=== PATIENT | female | born 1965 | race American Indian/Alaskan Native ===

== ENCOUNTER 2016-09-27 08:12 | Day surgery (SDC) | payer MEDICAID ==
[2016-09-21 10:40] VITALS: BMI 29.0
[2016-09-21 15:02] VITALS: RESP 18
[2016-09-27 09:10] LABS: PARTIAL THROMBOPLASTIN TIME 26.8 SECONDS (23.3-32.5)
[2016-09-27] MEDS ORDERED: Dexamethasone 4 mg/1 ml ONE (11:21)
[2016-09-27] MEDS ORDERED: Midazolam 2 MG/2 ML VIAL ONE (11:21)
[2016-09-27] MEDS ORDERED: Propofol 10 mg/ml Inj (20 ML) ONE (11:21)
[2016-09-27] MEDS ORDERED: Lactated Ringer's 1,000 ML IV ONE ×2 (11:30→12:45)
[2016-09-27] MEDS ORDERED: ePHEDrine 50 mg/ml Inj ONE (12:22)
[2016-09-27] MEDS ORDERED: HYDROmorphone 0.5 mg/0.5 ml ISec IVP PRN (12:54)
[2016-09-27 14:35] VITALS: O2SAT 100
[2016-09-27 15:25] VITALS: BP 110/76; PULSE 96; TEMP 98.8
--- NOTE | 2016-09-27 16:12 | CP.SDSHP ---
Same Day Surgery H & P - History Proposed Procedure: Hysteroscopic Myomectomy with Myosure device Pre-Op Diagnosis: Submucous fibroid nodule with excessive uterine bleeding. - Allergies Allergies: Allergies No Known Allergies Allergy (Verified 09/21/16 10:40) - Current Medications Current Medications: Antiretroviral medications - Physical Exam Vital Signs: Vital Signs 09/27/16 09/27/16 09/27/16 09:17 09:25 09:31 Temperature 98.6 F 98.6 F Pulse Rate 86 86 86 Respiratory 18 18 Rate Blood Pressure 130/81 130/81 O2 Sat by Pulse 100 100 Oximetry 09/27/16 09/27/16 09/27/16 12:50 13:05 13:20 Temperature 97.8 F Pulse Rate 97 H 88 80 Respiratory 18 18 18 Rate Blood Pressure 139/93 H 144/104 H 139/97 H O2 Sat by Pulse 100 100 100 Oximetry 09/27/16 09/27/16 09/27/16 13:35 13:50 14:05 Temperature 98.4 F Pulse Rate 89 87 90 Respiratory 18 18 18 Rate Blood Pressure 134/90 125/83 111/82 O2 Sat by Pulse 98 100 97 Oximetry 09/27/16 09/27/16 09/27/16 14:30 14:35 15:24 Temperature 97.9 F 98.8 F Pulse Rate 94 H 96 H Respiratory 18 18 Rate Blood Pressure 111/82 110/76 O2 Sat by Pulse 100 100 100 Oximetry Mental Status: Alert & Oriented x3 Neuro: WNL Heart: WNL Lungs: WNL GI: WNL - {Optional Preform as Required} Abdomen: WNL MEAT CARVER: WNL : WNL Other Pertinent Findings: H/O HIV - Impression Impression: 51yo female with Submucous Fibroid Nodule with menorrhagia Pt. Evaluated Today:Candidate for Anesthesia & Procedure: Yes - Date & Time Date: 09/27/16 Time: 07:40 Short Stay Discharge - Short Stay Discharge Admitting Diagnosis/Reason for Visit: N93.9 Disposition: HOME/ ROUTINE Referrals: Toya Tse MD [Primary Care Provider] - Additional Instructions (Diet, Activity): Take Motrin 600mg for pain Q6hrs as needed Progress Note/Discharge Note with Instructions: Pt s/p hysteroscopic myomectomy, Clinically stable. Pt will be discharged home to f/u in the office in 2 weeks. All other complaints should be sent to the nearest ER or to the clinic. Pt given prescription for Motrin for pain control.
--- NOTE | 2016-09-27 16:21 | PCM.SURG1 ---
Surgeon's Initial Post Op Note - Surgeon's Notes Surgeon: Dr Dalton Naval Designer: Dr Tiffany Kaba ( Family Practice Resident ) Type of Anesthesia: General Endo Anesthesia Administered By: Dr Sanchez Pre-Operative Diagnosis: Submucous Fibroid nodule with Menorrhagia. Operative Findings: 6-8wk sized anteverted uterus. A 3.6 X 2.7 X 2.1cm sbmucous fibroid nodule situated on the left anteroleteral aspect of the endometrial cavity and inferior to the left ostium. Norrmal appearing endometrial tissue. Both ostia were seen and appeared normal. EBL-20mls Post-Operative Diagnosis: Same as preop diagnosis Operation Performed: Hysteroscopic myomectomy using the Myosure procedure. Specimen/Specimens Removed: Fragments of Fibroid nodule removed. Estimated Blood Loss: EBL {In ML}: 20 Post-Op Condition: Good Date of Surgery/Procedure: 09/27/16 Time of Surgery/Procedure: 16:30
--- NOTE | 2016-09-27 17:35 | OP ---
PROCEDURE DATE: 09/27/2016 PREOPERATIVE DIAGNOSIS: A 51-year-old female with menorrhagia and submucosal fibroid nodule. POSTOPERATIVE DIAGNOSIS: A 51-year-old female with menorrhagia and submucosal fibroid nodule. PROCEDURE DONE: Hysteroscopic myomectomy using the MyoSure procedure. SURGEON: Dr. Dalton. SMOKING PIPE COATER: Dr. Tiffany Kaba (family practice resident). TYPE OF ANESTHESIA: General endotracheal. ANESTHESIOLOGIST: Anesthesia administered by Dr. Sanchez. FINDINGS: A 6-8 week size anteverted uterus. A 3.6 x 2.7 x 2.1 submucosal fibroid nodule situated on the left anterolateral aspect of the endometrial cavity was identified. This was inferior to the left ostium of the left fallopian tube. The tissue and endometrial tissue appeared normal. IV FLUID INTAKE: About 600 mL. URINE OUTPUT: About 50 mL. ESTIMATED BLOOD LOSS: About 20 mL. COMPLICATIONS: None. SPECIMEN: Fragments from the fibroid nodule removed were sent for histopathology. DESCRIPTION OF PROCEDURE: After obtaining informed consent, the patient was sent to the OR with IV running. The patient was placed in a supine position on the OR table and after adequate general anesthesia, was placed in dorsal lithotomy position. The patient was then prepped and draped in a sterile fashion. The urinary bladder was drained with a straight catheter with about 50 mL of clear urine output. The posterior wall of the vagina was depressed using a weighted speculum. The anterior wall was elevated using an L-shaped retractor. The anterior lip of the cervix was held with a single-tooth tenaculum. The uterus was then sounded to a depth of 8 cm. The cervical canal was then dilated using Hegar's dilated to about 8 mm dilatation. The hysteroscopic instrument was introduced into the uterine cavity at this point with the findings noted above. After the distending the uterine cavity with the required amount of pressure and normal saline, the MyoSure device was introduced into the hysteroscopic channels. By applying the device onto the surface of the submucosal nodule, different cycles of activation of the MyoSure device were done in the presence of device customer loyalty representative. These were done until all the tissues comprising the submucosal fibroid nodule had been completely removed. These were kept and sent for histopathological evaluation. Pictures were taken both before and after the operation. Once the procedure had been completed, all instruments were taken from the endometrial cavity and the vagina. The patient was then placed back in a supine position and was sent to the recovery room awake and in stable condition. All counts of instruments used were correct x 3. Sheldon Dalton MD cc: [id number] TT: 09/27/2016 17:34:49 tn MTDD
== END 2016-09-27 16:22 | disposition home or self-care (01) ==
LOC: H.OPSURG 08:12
PROVIDERS: ATTEND Obstetrics & Gynecology
DX: D25.0 Submucous leiomyoma of uterus (principal); N93.9 Abnormal uterine and vaginal bleeding, unspecified; I10 Essential (primary) hypertension; D64.9 Anemia, unspecified; Z21 Asymptomatic human immunodeficiency virus [HIV] infection status

== ENCOUNTER 2017-09-14 06:52 | Day surgery (SDC) | payer MEDICAID ==
[2017-09-14 07:07] VITALS: BMI 31.6
[2017-09-14 07:50] LABS: HEMOGLOBIN 11.8 g/dL (12.0-16.0); MEAN CORPUSCULAR HEMOGLOBIN 29.2 pg (27.0-31.0); MEAN CORPUSCULAR HGB CONC 32.8 g/dL (33.0-37.0); RBC 4.04 Mil/uL (3.80-5.20); WHITE BLOOD COUNT 5.8 K/uL (4.8-10.8)
[2017-09-14 07:57] LABS: BLOOD UREA NITROGEN 22 mg/dl (7-17); CALCIUM 9.6 mg/dL (8.4-10.2); GFR AFRICAN-AMERICAN > 60; GFR NON-AFRICAN AMERICAN > 60
[2017-09-14 08:13] LABS: INR 0.9 (0.9-1.2); PARTIAL THROMBOPLASTIN TIME 31.6 Seconds (25.6-37.1); PROTHROMBIN TIME 10.4 Seconds (9.8-13.1)
[2017-09-14] MEDS ORDERED: NITROGLYCERIN IV ONE (08:15)
[2017-09-14] MEDS ORDERED: PED IV ONE (08:15)
[2017-09-14] MEDS ORDERED: VERAPAMIL IV ONE (08:15)
[2017-09-14] MEDS ORDERED: HEPARIN IV ONE (08:15)
[2017-09-14] MEDS ORDERED: Propofol 10 mg/ml Inj (20 ML) ONE ×2 (08:29→11:39)
[2017-09-14] MEDS ORDERED: Nitroglycerin 2% 15 INCH/30 GM TUBE TOP STA (08:32)
[2017-09-14] MEDS ORDERED: Lidocaine/Prilocaine CREAM 5GM TP ONE ×2 (08:32→08:38)
[2017-09-14] MEDS ORDERED: Nitroglycerin 2% Ointment Foilpak UD TOP ONE (08:39)
[2017-09-14] MEDS ORDERED: ceFAZolin IV 2 gm in Dextrose 2 GM/50 ML BAG IVPB ONE (08:39)
[2017-09-14 08:44] VITALS: RESP 18
[2017-09-14] MEDS ORDERED: Phenylephrine 10 mg/ml Inj ONE (08:54)
[2017-09-14] MEDS ORDERED: Iodixanol 320 MG/ML 100 ML BOTTLE IV ONE ×2 (10:25→13:14)
--- NOTE | 2017-09-14 10:30 | CARD ---
APPROVED REPORT EKG Measurement Heart [id number] <Conclusion> Normal sinus rhythm Voltage criteria for left ventricular hypertrophy Abnormal ECG
[2017-09-14] MEDS ORDERED: Midazolam 2 MG/2 ML VIAL ONE (11:39)
[2017-09-14] MEDS ORDERED: Lidocaine Hydrochloride 1% 10 ML ONE (11:52)
[2017-09-14] MEDS ORDERED: Iodixanol 320 mg/ml 50 ml Sol IV ONE (12:34)
[2017-09-14] MEDS ORDERED: Sodium Chloride 0.9% 1,000 ML IV SCH (14:00)
[2017-09-14] MEDS ORDERED: Morphine 4 MG/ML VIAL ONE (14:01)
--- NOTE | 2017-09-14 14:19 | CP.SDSHP ---
Same Day Surgery H & P - History Proposed Procedure: Uterine Fibroid Embolization Pre-Op Diagnosis: symptomatic uterine fibroids - Allergies Allergies: Allergies No Known Allergies Allergy (Verified 07/05/17 12:14) - Physical Exam Vital Signs: Vital Signs 09/14/17 09/14/17 09/14/17 07:33 07:37 08:43 Temperature 98.4 F 99.8 F H Pulse Rate 88 88 83 Respiratory 20 18 Rate Blood Pressure 131/89 141/95 H O2 Sat by Pulse 100 99 Oximetry 09/14/17 11:50 Temperature 99.1 F Pulse Rate 79 Respiratory 18 Rate Blood Pressure 141/89 O2 Sat by Pulse 100 Oximetry - Impression Impression: 52 yo female w/ dysmenorrhea, menometrorrhagia, bulk related symptoms secondary to uterine fibroids and large submucosal polyp - Date & Time Date: 09/14/17 Time: 08:30 Short Stay Discharge - Short Stay Discharge Admitting Diagnosis/Reason for Visit: D50.8, D25.9, N92.1 Disposition: HOME/ ROUTINE Referrals: Toya Tse MD [Primary Care Provider] -
--- NOTE | 2017-09-14 14:21 | PCM.SURG1 ---
Surgeon's Initial Post Op Note - Surgeon's Notes Surgeon: Kevin Lopez MD Washerette Machine Operator: None Type of Anesthesia: MAC Pre-Operative Diagnosis: symptomatic uterine fibroids Operative Findings: bilateral hypertrophied uterine arteries supplying fibroid uterus Post-Operative Diagnosis: same Operation Performed: bilateral uterine artery embolization Specimen/Specimens Removed: n/a Estimated Blood Loss: EBL {In ML}: 5 Date of Surgery/Procedure: 09/14/17 Time of Surgery/Procedure: 13:30
[2017-09-14] MEDS ORDERED: Sodium Chloride 0.9% 500 ML IV ONE (15:00)
[2017-09-14] MEDS ORDERED: Acetaminophen IV IVPB ONE (16:00)
[2017-09-14 16:27] VITALS: TEMP 98
[2017-09-14 18:49] VITALS: BP 118/80; PULSE 85; O2SAT 18
--- NOTE | 2017-09-18 10:12 | VASCULAR ---
PROCEDURE: UTERINE FIBROID EMBOLIZATION CLINICAL HISTORY: 52-year-old female with history of symptomatic uterine fibroids causing dysmenorrhea, menometrorrhagia in bulk related symptoms referred to Interventional Radiology for bilateral uterine fibroid embolization. COMPARISON: MRI of the pelvis performed 07/20/2017. PROCEDURE: 1. Selective bilateral internal iliac artery angiography. 2. Selective bilateral uterine artery angiography. 3. Bilateral uterine artery embolization. PRE-PROCEDURE FINDINGS: 1. Right internal iliac artery angiography demonstrated wide patency with the origin of the left uterine artery seen arising from the anterior division. 2. Right uterine artery angiography demonstrated opacification of an enlarged, fibroid uterus without opacification of branches to the right ovary. 3. Left internal iliac artery angiography demonstrated wide patency with the origin of the left uterine artery seen arising from the anterior division. 4. Left uterine artery angiography demonstrated opacification of an enlarged, fibroid uterus without opacification of branches to the left ovary. POST-PROCEDURE FINDINGS: 1. Post-embolization left uterine artery angiography demonstrated significant pruning of distal vessels and some reflux at the catheter tip. 2. Post-embolization right uterine artery angiography demonstrated significant pruning of distal vessels and some reflux at the catheter tip. INTERVENTIONAL RADIOLOGIST: Kevin Lopez M.D. (the attending was present for the entire procedure) ANESTHESIA: Provided by the attending anesthesiologist. Sedation was supervised by the anesthesiology attending with the presence of independent radiology nursing monitoring. Physiological data monitoring was performed throughout the entire procedure. The patient's blood pressure, EKG and pulse oximetry were recorded. The patient tolerated the procedure and sedation without untoward reactions. The intra-procedural sedation time was 75 minutes. MEDICATION: Lidocaine 1% for local subcutaneous analgesia. Ancef 2 gram IV. Decadron 10 milligram IV. Protonix 40 milligram IV. Zofran 4 milligram IV. Verapamil 2.5 milligram intra-arterial. Nitroglycerin 200 microgram intra-arterial. Heparin 3000 units intra-arterial. COMPLICATIONS: None. RADIATION DOSE: Fluoroscopy Time: 996.8 seconds DAP: 936.93 mGy PROCEDURE DESCRIPTION AND FINDINGS: The risks, benefits, alternatives and possible complications of the procedure including, but not limited to, puncture site or internal bleeding, uterine necrosis or abscess formation requiring emergent hysterectomy, nontarget embolization, tissue sloughing, amenorrhea, early onset menopause, pulmonary embolism as well as anesthesia complications, were fully discussed; all questions were answered and informed consent was obtained. The patient was brought into the interventional suite and a pre-procedure 'time-out' was performed. The patient was placed on the fluoroscopy table in the supine position. A modified Abdullahi test (Barbeau test) was performed on the left wrist to confirm patency of the ulnopalmar arch using pulse oximetry. A Barbeau C waveform was demonstrated. The left wrist was then prepped and draped in the usual sterile fashion. Maximum sterile barrier precautions were maintained throughout the entire procedure. Preliminary ultrasound images of the left wrist vasculature demonstrate patency of the left radial artery. Following subcutaneous infiltration of lidocaine 1% for local analgesia, under ultrasound guidance, a 21-gauge needle was advanced into the left radial artery with real-time visualization of needle entry. The ultrasound images were permanently recorded and submitted to the PACS. A 0.018 guidewire was advanced centrally. A 5-Russian hydrophilic Glideslender sheath was advanced over the guidewire. The inner portion of the sheath was carefully removed with the guidewire. Verapamil 2.5 mg, Nitroglycerin 200 mcg and Heparin 3000 units were given through the arterial sheath with slow hemodilution. A pressure side flush was started. A 4 Russian 125 Vert catheter was coaxially loaded via the 5 Russian sheath and was used to select the right internal iliac artery. Digital subtraction angiography was performed which demonstrated the wide patency with the origin of the right uterine artery seen arising from the anterior division of the right internal iliac artery. The right uterine artery was then selectively catheterized with a 2.8 Russian Oculeveumsigmacare ProGreat microcatheter and the catheter was advanced to the distal main right uterine artery, beyond the origin of the cervico-vaginal branch. Digital subtraction angiography was performed which demonstrated opacification of an enlarged, fibroid uterus without opacification of branches to the right ovary. Subsequently, the right uterine artery was embolized with 0.75 vials of 500-700 micron Embospheres until there was significant pruning of distal vessels and some reflux at the catheter tip with hand injection. 5 ml preservative free Lidocaine 2% was injected intra-arterially for analgesia. The microcatheter was removed and the 4 Russian 125 Vert catheter was pulled back and was used to select the left internal iliac artery. Digital subtraction angiography was performed which demonstrated the wide patency with the origin of the left uterine artery arising from the anterior division of the left internal iliac artery. The left uterine artery was then selectively catheterized with a 2.8 Russian Generate ProGreat microcatheter and the catheter was advanced to the distal main left uterine artery, beyond the origin of the cervico-vaginal branch. Digital subtraction angiography was performed which demonstrated opacification of an enlarged, fibroid uterus without opacification of branches to the left ovary. Subsequently, the left uterine artery was embolized with 2.5 vials 500-700 micron Embospheres until there was significant pruning of distal vessels and some reflux at the catheter tip with hand injection. 5 ml preservative free Lidocaine 2% was injected intra-arterially for analgesia. All catheters and guidewires were removed. A TR Band was placed on the left wrist for hemostasis. The access sheath was removed without evidence of hematoma. A radial artery pulse was palpated distal to the puncture site confirming patent hemostasis. The patient tolerated the procedure well without immediate post-procedure complications and was transferred to PACU in stable condition. IMPRESSION: SUCCESSFUL BILATERAL SELECTIVE UTERINE ARTERY CATHETERIZATION AND EMBOLIZATION FOR SYMPTOMATIC UTERINE FIBROIDS DESCRIBED ABOVE.
== END 2017-09-14 18:15 | disposition left against medical advice (07) ==
LOC: H.OPSURG 06:52
PROVIDERS: ATTEND Obstetrics & Gynecology
DX: N92.0 Excessive and frequent menstruation with regular cycle (principal); D50.8 Other iron deficiency anemias; D25.9 Leiomyoma of uterus, unspecified; N94.6 Dysmenorrhea, unspecified; D25.0 Submucous leiomyoma of uterus
CPT/HCPCS: 36415; 37243; 80048; 85027; 85610; 85730; 93005; C1769; J0131; J0690; J1100; J1644; J1885; J2001; J2250; J2270; J2370; J2704; J3010; J7040; Q9967

== ENCOUNTER 2017-09-22 16:17 | Inpatient (IN) | payer MEDICAID ==
[2017-09-22 16:18] VITALS: BMI 31.6
--- NOTE | 2017-09-22 17:41 | ED PDOC ---
HPI: Female Pain History Per: Patient History/Exam Limitations: no limitations Additional Complaint(s): 52 year old female with history of fibroids, s/p uterine artery embolization on 09/14/17 here at [facility]. She came in with complaints of feeling like she was passing tissue, 'like a piece of meat', from her vagina. She attempted to pull it out but was unable to, so she came to ED. She has had cramping as well, but has been taking pain medication prescribed to her post procedure with relief of pain. She has not had any fevers, chills, dysuria, chest pain, dyspnea, nausea, vomiting, diarrhea/constipation, pedal edema. Follow up appt with Dr. Tse on 09/27/17. LMP: unknown has been bleeding for months. PMD: Dr. Tse SCREWHEAD POLISHER: Dr. Wylie <Laura Mariano - Last Filed: 09/22/17 18:52> <Mayda Baker - Last Filed: 09/22/17 22:56> Time Seen by Provider: 09/22/17 16:48 Chief Complaint (Nursing): Female Genitourinary Supervising Attending Note - Supervising Attending Note The Documented history was done by the: Physician Screen Operator The documented physical exam was done by the: Physician Screen Operator, Attending Physician - Attestation: I have personally seen and examined this patient.: Yes I have fully participated in the care of the patient.: Yes I have reviewed all pertinent clinical information, including history, physical exam and plan: Yes <Mayda Baker - Last Filed: 09/22/17 22:56> Past Medical History Vital Signs: Last Vital Signs Temp 98.1 F 09/22/17 16:34 Pulse 82 09/22/17 16:34 Resp 18 09/22/17 16:34 BP 136/87 09/22/17 16:34 Pulse Ox 98 09/22/17 16:34 - Medical History PMH: Anemia, HIV, HTN Denies: Chronic Kidney Disease - Family History Family History: States: Unknown Family Hx <Laura Mariano - Last Filed: 09/22/17 18:52> Vital Signs: Last Vital Signs Temp 99.3 F 09/22/17 22:20 Pulse 88 09/22/17 22:20 Resp 20 09/22/17 22:20 BP 118/80 09/22/17 22:20 Pulse Ox 98 09/22/17 22:20 <Mayda Baker - Last Filed: 09/22/17 22:56> - Home Medications Home Medications: Ambulatory Orders Medication Instructions Recorded Ferrous Sulfate [Feosol] 325 mg PO TID 09/27/16 amLODIPine [Norvasc] 2.5 mg PO DAILY 09/27/16 Cholecalciferol [Vitamin D 1000 IU] 1,000 unit PO DAILY 08/08/17 Elviteg/Cob/Emtri/Tenof Alafen 1 tab PO HS 08/08/17 [Genvoya Tablet] Mv,Min10/Folic Acid/D3/Ala/Lut 1 tab PO DAILY 08/08/17 [Strovite One Caplet] Naproxen Sodium [Aleve] 440 mg PO DAILY PRN 09/22/17 Ondansetron [Zofran Tab] 4 mg PO Q6 PRN 09/22/17 - Allergies Allergies/Adverse Reactions: Allergies Allergy/AdvReac Type Severity Reaction Status Date / Time No Known Allergies Allergy Verified 07/05/17 12:14 Review of Systems Constitutional: Negative for: Fever, Chills, Sweats, Weakness, Malaise, Weight loss Eyes: Negative for: Pain ENT: Negative for: Ear Pain, Nose Pain Cardiovascular: Negative for: Chest Pain, Palpitations, Orthopnea, Paroxysmal Noc. Dyspnea, Light Headedness Respiratory: Negative for: Cough, Shortness of Breath, SOB with Exertion Gastrointestinal: Negative for: Nausea, Vomiting, Diarrhea, Constipation Genitourinary Female: Negative for: Dysuria Neurological: Negative for: Weakness, Numbness, Altered Mental Status, Headache Psych: Negative for: Anxiety, Depression <Laura Mariano - Last Filed: 09/22/17 18:52> Physical Exam - Reviewed Vital Signs Reviewed: Yes - Physical Exam Appears: Positive for: Well, Non-toxic, No Acute Distress Head Exam: Positive for: ATRAUMATIC, NORMAL INSPECTION, NORMOCEPHALIC Skin: Positive for: Normal Color, Warm, DRY Eye Exam: Positive for: EOMI, Normal appearance, PERRL ENT: Positive for: Normal ENT Inspection Neck: Positive for: Normal, Painless ROM Cardiovascular/Chest: Positive for: Regular Rate, Rhythm. Negative for: Chest Non Tender, Edema, Gallop, Murmur, Tachycardia Respiratory: Positive for: Normal Breath Sounds. Negative for: Rales, Rhonchi, Respiratory Distress Gastrointestinal/Abdominal: Positive for: Normal Exam, Bowel Sounds, Soft. Negative for: Tenderness Pelvic Exam: Positive for: Other (fibroid seen per vagina, appears necrotic, no active bleeding) Back: Negative for: L CVA Tenderness, R CVA Tenderness Rectal: Positive for: Deferred Extremity: Negative for: Tenderness, Pedal Edema Neurologic/Psych: Positive for: Alert, real estate valuer II-XII, Mood/Affect (appropriate) <Laura Mariano - Last Filed: 09/22/17 18:52> - Laboratory Results Result Diagrams: 09/22/17 18:15 09/22/17 18:15 - ECG O2 Sat by Pulse Oximetry: 98 - Progress ED Course And Treament: 52 year old female s/p uterine artery embolization with tissue per vagina. Patient was seen and examined with Dr. Orr, she is to go to OR for exam under anesthesia, and removal of fibroid. She is hemodynamically stable. --CBC --CMP --Type and Screen --Coags --CXR --ECG Case d/w Dr. Baker who agrees with the assessment and plan delineated above. <Laura Mariano - Last Filed: 09/22/17 18:52> - Laboratory Results Result Diagrams: 09/22/17 18:15 09/22/17 18:15 <Mayda Baker - Last Filed: 09/22/17 22:56> Disposition - Disposition Disposition Time: 18:53 - Pt Status Changed To: Hospital Disposition Of: SDS- Endo,OR,Cath,IR - POA Present On Arrival: None <Laura Mariano - Last Filed: 09/22/17 18:52> <Mayda Baker - Last Filed: 09/22/17 22:56> - Clinical Impression Clinical Impression: Status post embolization of uterine artery - Disposition Condition: STABLE
[2017-09-22] MEDS ORDERED: Etomidate 20 mg/10ml Inj IV ONE (18:19)
[2017-09-22] MEDS ORDERED: Succinylcholine 200 mg/10 ml Inj IV ONE (18:19)
[2017-09-22] MEDS ORDERED: Propofol 10 mg/ml Inj (20 ML) ONE ×2 (18:20→19:30)
--- NOTE | 2017-09-22 18:20 | CP.PCM.HP ---
History of Present Illness - History of Present Illness History of Present Illness: CC: "Tissue out of vagina" HPI: 52 YO Female with hx of fibroids, s/p uterine artery embolization on presents for ED for passing tissue per vagina. Pt states that she has had cramping pain for the past week and today she noticed some blood per vagina and when she went to the bathroom she saw tissue coming out of her vagina. PMH: HIV, fibroids, HTN, Anemia, HLD SurgH: uterine artery embolization on 09/14/17, hysteroscopic myomectomy with myosure FH: HTN in mother SH: Denies ETOH, Smoking and illicit drug use Meds: Genvoya, strovite, Amlodipine, Iron Allergies: NKDA Present on Admission - Present on Admission Any Indicators Present on Admission: No Review of Systems - Constitutional Constitutional: absent: Chills, Fever - Cardiovascular Cardiovascular: absent: Chest Pain, Dyspnea - Respiratory Respiratory: absent: Cough, Dyspnea - Gastrointestinal Gastrointestinal: absent: Constipation, Diarrhea, Vomiting - Genitourinary Genitourinary: absent: Difficulty Urinating, Hematuria - Reproductive: Female Additional comments: tissue per vagina Past Patient History - Past Medical History & Family History Past Medical History?: Yes - Past Social History Smoking Status: Never Smoked Alcohol: None Drugs: Denies - CARDIAC Hx Hypertension: Yes - PULMONARY Hx Respiratory Disorders: No - NEUROLOGICAL Hx Neurological Disorder: No - HEENT Hx HEENT Problems: No - RENAL Hx Chronic Kidney Disease: No - ENDOCRINE/METABOLIC Hx Endocrine Disorders: No - HEMATOLOGICAL/ONCOLOGICAL Hx Anemia: Yes Hx Human Immunodeficiency Virus (HIV): Yes - INTEGUMENTARY Hx Dermatological Problems: No - MUSCULOSKELETAL/RHEUMATOLOGICAL Hx Musculoskeletal Disorders: No - GASTROINTESTINAL Hx Gastrointestinal Disorders: No - GENITOURINARY/GYNECOLOGICAL Hx Genitourinary Disorders: No - PSYCHIATRIC Hx Psychophysiologic Disorder: No - SURGICAL HISTORY Hx Surgeries: Yes Other/Comment: removal fibroids,laparoscopy-09/2616 - ANESTHESIA Hx Anesthesia: Yes Hx Anesthesia Reactions: No Hx Malignant Hyperthermia: No Meds Allergies/Adverse Reactions: Allergies Allergy/AdvReac Type Severity Reaction Status Date / Time No Known Allergies Allergy Verified 07/05/17 12:14 Physical Exam - Constitutional Appears: No Acute Distress - Head Exam Head Exam: ATRAUMATIC, NORMOCEPHALIC - Eye Exam Eye Exam: EOMI, Normal appearance - ENT Exam ENT Exam: Mucous Membranes Moist - Respiratory Exam Respiratory Exam: Clear to Auscultation Bilateral, NORMAL BREATHING PATTERN. absent: Rales, Wheezes - Cardiovascular Exam Cardiovascular Exam: REGULAR RHYTHM, +S1, +S2 - GI/Abdominal Exam GI & Abdominal Exam: Hyperactive Bowel Sounds, Normal Bowel Sounds, Soft. absent: Distended, Tenderness - Exam Speculum exam: Tissue (tissue visualized in the vagina ) - Extremities Exam Extremities exam: Positive for: full ROM, normal inspection. Negative for: pedal edema - Psychiatric Exam Psychiatric exam: Normal Affect, Normal Mood - Skin Skin Exam: Dry, Intact, Normal Color Results - Vital Signs Recent Vital Signs: Last Vital Signs Temp 98.1 F 09/22/17 16:34 Pulse 82 09/22/17 16:34 Resp 18 09/22/17 16:34 BP 136/87 09/22/17 16:34 Pulse Ox 98 09/22/17 18:06 Assessment & Plan - Assessment and Plan (Free Text) Assessment: Assessment/Plan: 52 YO Female with hx of fibroids, and recent uterine artery embolization (09/14/2017) with fibroid visualized in vagina. -admit patient for OR procedure -Pt consented for procedure in OR for removal of fibroid -blood work, type and screen Pt seen by attending Dr. Orr
[2017-09-22 18:27] LABS: BASO # 0.1 K/uL (0.0-0.2); BASO % 0.8 % (0.0-2.0); EOS # 0.1 K/uL (0.0-0.7); EOS % 1.9 % (0.0-4.0); HEMOGLOBIN 11.1 g/dL (12.0-16.0); LYMPH # 2.3 K/uL (1.0-4.3); LYMPH % 29.5 % (20.0-40.0); MEAN CORPUSCULAR HEMOGLOBIN 28.9 pg (27.0-31.0); MEAN CORPUSCULAR HGB CONC 32.5 g/dL (33.0-37.0); MEAN PLATELET VOLUME 10.1 fl (7.2-11.7); MONO # 0.6 K/uL (0.0-0.8); MONO % 7.3 % (0.0-10.0); NEUT # 4.7 K/uL (1.8-7.0); NEUT % 60.5 % (50.0-75.0); NRBC % 0.1 % (0.0-0.0); RBC 3.83 Mil/uL (3.80-5.20); RED CELL DISTRIBUTION WIDTH 14.7 % (11.5-14.5); WHITE BLOOD COUNT 7.7 K/uL (4.8-10.8)
[2017-09-22 18:38] LABS: ALB/GLOB RATIO 1.1 (1.0-2.1); ALBUMIN 3.9 g/dL (3.5-5.0); ALT/SGPT 27 U/L (9-52); AST/SGOT 34 U/L (14-36); BLOOD UREA NITROGEN 13 mg/dl (7-17); CALCIUM 9.1 mg/dL (8.4-10.2); GFR AFRICAN-AMERICAN > 60; GFR NON-AFRICAN AMERICAN > 60
[2017-09-22 18:44] LABS: PARTIAL THROMBOPLASTIN TIME 25.8 Seconds (25.6-37.1)
[2017-09-22] MEDS ORDERED: Lidocaine 2% Inj (20ml) ONE (18:57)
[2017-09-22] MEDS ORDERED: Oxytocin 10 Units/ml Inj ONE (18:57)
[2017-09-22] MEDS ORDERED: Strong Iodine Topical Sol. 5%-10% ONE (18:57)
[2017-09-22] MEDS ORDERED: ACETIC ACID 3% 30 ML LIQUID MC ONE (18:58)
[2017-09-22] MEDS ORDERED: Ferric Subsulfate Sol(60 mL) ONE (18:58)
[2017-09-22] MEDS ORDERED: Bupivacaine 0.5% Inj(30mL) ONE (18:58)
[2017-09-22] MEDS ORDERED: Lactated Ringer's 1,000 ML IV ONE (19:28)
[2017-09-22] MEDS ORDERED: Midazolam 2 MG/2 ML VIAL ONE (19:30)
--- NOTE | 2017-09-22 19:56 | PCM.SURG1 ---
Surgeon's Initial Post Op Note - Surgeon's Notes Surgeon: Dominga Critical Power Technician: N/A Type of Anesthesia: General Endo Anesthesia Administered By: Ximena Pre-Operative Diagnosis: Aborting uterine fibroid Operative Findings: Aborting uterine fibroid ~4cm. Otherwise normal pelvic anatomy Post-Operative Diagnosis: Same Operation Performed: Exam under anesthesia, removal of aborting fibroid ( myomectomy) Specimen/Specimens Removed: uterine fibroid Estimated Blood Loss: EBL {In ML}: 0 Blood Products Given: N/A Drains Used: No Drains Post-Op Condition: Good Date of Surgery/Procedure: 09/22/17 Time of Surgery/Procedure: 19:56
[2017-09-22] MEDS ORDERED: Oxycodone/Acetaminophen 5/325 mg Tab PO PRN (19:58)
[2017-09-22] MEDS ORDERED: HYDROmorphone 0.5 mg/0.5 ml ISec IVP PRN (20:25)
[2017-09-22] MEDS ORDERED: Lactated Ringer's 1,000 ML IV SCH (20:30)
--- NOTE | 2017-09-22 23:55 | OP ---
PROCEDURE DATE: 09/22/2017 PREOPERATIVE DIAGNOSIS: Aborting uterine fibroids, status post uterine artery embolization. POSTOPERATIVE DIAGNOSIS: Aborting uterine fibroids, status post uterine artery embolization. OPERATION PERFORMED: Examined under anesthesia, removal of aborting uterine fibroid, and myomectomy. SURGEON: Edilberto Orr MD TYPE OF ANESTHESIA: General. ANESTHESIA ADMINISTERED BY: Armando Bueno MD OPERATIVE FINDINGS: Aborting uterine fibroid approximately 4 cm; otherwise, normal appearing pelvic anatomy. ESTIMATED BLOOD LOSS: Minimal, DESCRIPTION OF PROCEDURE: The patient was taken to the operating room where general anesthesia was found to be adequate. The patient was prepped and draped in normal sterile fashion in the dorsal lithotomy position. A weighted speculum was placed at the posterior aspect of the vagina. A Goodman retractor was placed at the anterior surface of the vagina. The cervix was visualized and approximately 4 cm aborting fibroid was seen protruding through the cervix. The fibroid was grasped with a ring forceps and twisted in a clockwise fashion until the fibroid was bluntly removed from its . After removal of the fibroid, the was electrocauterized until hemostasis noted. After removal of fibroid, the cervical os was found to be hemostatic. The patient tolerated the procedure well. All sponge count, lap count, and needle counts were correct x2. There were no complications. The patient was taken to the recovery room, awake and in stable condition. Edilberto Orr MD
[2017-09-22 23:57] VITALS: BP 123/77; PULSE 89; RESP 19; TEMP 98.3; O2SAT 97
--- NOTE | 2017-09-23 08:25 | RAD ---
HISTORY: or COMPARISON: Chest radiograph dated 03/18/2014 FINDINGS: LUNGS: No active pulmonary disease. PLEURA: No significant pleural effusion identified, no pneumothorax apparent. CARDIOVASCULAR: Normal. OSSEOUS STRUCTURES: No significant abnormalities. VISUALIZED UPPER ABDOMEN: Normal. OTHER FINDINGS: None. IMPRESSION: No active disease.
--- NOTE | 2017-09-23 11:46 | CARD ---
APPROVED REPORT EKG Measurement Heart [id number] <Conclusion> Normal sinus rhythm Minimal voltage criteria for LVH, may be normal variant Nonspecific T wave abnormality Abnormal ECG
== END 2017-09-22 23:50 | disposition home or self-care (01) | DRG 359 ==
LOC: H.ER 16:17 → H.ERHOLD 17:37 → H.MEDSURG1 22:23
PROVIDERS: ADMIT Obstetrics & Gynecology; ATTEND Obstetrics & Gynecology
PROC: 0UB98ZZ Excision of Uterus, Via Natural or Artificial Opening Endoscopic (ICD-10-PCS; principal; 2017-09-22 18:30)
DX: D25.9 Leiomyoma of uterus, unspecified (principal); I10 Essential (primary) hypertension; E78.5 Hyperlipidemia, unspecified; D64.9 Anemia, unspecified; Z21 Asymptomatic human immunodeficiency virus [HIV] infection status